=== PATIENT | male | born 1995 | race Caucasian/White ===

== ENCOUNTER 2018-04-26 15:41 | Emergency (ER) | payer OTHER ==
[2018-04-26 15:48] VITALS: BP 121/79
--- NOTE | 2018-04-26 16:34 | EDPHY ---
H & P Stated Complaint: possible allergic reaction towards lamictal Time Seen by Provider: 04/26/18 16:25 HPI/ROS: CHIEF COMPLAINT: Lump in throat HISTORY OF PRESENT ILLNESS: A 22-year-old male with anxiety presents with a lump in his throat. He has been gradually increasing his dosing of Lamictal over the past few weeks. He had been on Lamictal 150 mg daily until this morning, when he took 175 mg. Approximately 1 hr after taking the medication, he began to feel a lump in his throat. He became quite worried and called his psychiatrist, who told him to decrease the dosing to 150 mg daily again. He is concerned about a possible rib allergic reaction to Lamictal. No rash, shortness of breath or other symptoms. REVIEW OF SYSTEMS: complete 10 point ROS reviewed and is negative except for the noted elements in the HPI Source: Patient - Personal History Current Tetanus/Diphtheria Vaccine: Yes Current Tetanus Diphtheria and Acellular Pertussis (TDAP): Yes - Medical/Surgical History Hx Asthma: No Hx Chronic Respiratory Disease: No Hx Diabetes: No Hx Cardiac Disease: No Hx Renal Disease: No Hx Cirrhosis: No Hx Alcoholism: No Hx HIV/AIDS: No Hx Splenectomy or Spleen Trauma: No Other PMH: anxiety,depression,tonsillectomy - Social History Smoking Status: Former smoker - Physical Exam Exam: General Appearance: Alert, pleasant Eyes: Pupils equal and round, no conjunctival pallor or injection ENT, Mouth: Mucous membranes moist, no oral or pharyngeal swelling Neck: Normal inspection, no stridor Respiratory: Lungs are clear to auscultation Cardiovascular: Regular rate and rhythm Neurological: A&O, nonfocal, normal gait Skin: Warm and dry Extremities: Normal inspection Psychiatric: Mood and affect normal Constitutional: Initial Vital Signs Temperature (C) 36.5 C 04/26/18 15:45 Heart Rate 89 04/26/18 15:45 Respiratory Rate 17 04/26/18 15:45 Blood Pressure 121/79 H 04/26/18 15:45 O2 Sat (%) 99 04/26/18 15:45 O2 Delivery Mode Room Air Allergies/Adverse Reactions: No Known Allergies Allergy (Unverified 04/26/18 15:42) Home Medications: Medication Instructions Recorded LaMICtal 04/26/18 Remeron 04/26/18 Wellbutrin Xl 04/26/18 Medical Decision Making - Diagnostics Imaging Results: Imaging Impressions Soft Tissue Neck X-Ray 04/26/18 16:31 Impression: Negative. ED Course/Re-evaluation: This patient presents with a concern about a lump in his throat. Vital signs are normal, including oxygen saturation and respiratory rate. Clinically there is no evidence of airway obstruction. I strongly encouraged patient to discontinue Lamictal. He will return for worsening symptoms or any concerns. - Data Points Medications Given: Discontinued Medications Diphenhydramine HCl (Benadryl) 25 mg PO EDNOW ONE Stop: 04/26/18 16:36 Last Admin: 04/26/18 16:45 Dose: 25 mg Departure - Departure Disposition: Home, Routine, Self-Care Clinical Impression: Sensation of lump in throat Condition: Good Instructions: Additional Information Additional Instructions: Take Benadryl for possible allergic reaction. I advise you to stop taking Lamictal. Return for worsening symptoms or any concerns.
[2018-04-26] MEDS ORDERED: diphenhydrAMINE 25 MG CAP PO ONE (16:35)
== END 2018-04-26 17:10 | disposition home or self-care (01) ==
DX: R07.0 Pain in throat (principal); F41.9 Anxiety disorder, unspecified; Z79.899 Other long term (current) drug therapy

== ENCOUNTER → 2018-09-11 | Outpatient (CLI) | payer OTHER | LOC: FCPNEURO 13:37 ==

== ENCOUNTER → 2018-09-15 | Outpatient (CLI) | payer OTHER | LOC: FIMAGING 15:28 ==